=== PATIENT | male | born 1945 | race Caucasian/White ===

== ENCOUNTER 2018-05-15 13:59 | Emergency (ER) | payer MEDICARE ==
[2018-05-15] MEDS ORDERED: FUROSEMIDE 40 MG TABLET PO ONE (15:15)
--- NOTE | 2018-05-15 15:18 | Emergency Department Record ---
History of Present Illness - General Chief Complaint: Numbness Stated Complaint: FEET ARE GOING NUMB Time Seen by Provider: 05/15/18 14:35 Source: Patient Mode of Arrival: Ambulatory - History of Present Illness Initial Comments: patient has swelling of both feet more the right foot and that leg is painful. Primary Dr Demarco.No chest pain no nause vomiting or diarrhea and no cough. -: Year(s) History of same: Yes Place: Other Severity: Mild Quality: Numb, Other Associated Symptoms: Other - [place] Coma Scale Eye Response: (4) Open spontaneously Motor Response: (6) Obeys commands Verbal Response: (5) Oriented [place] Total: 15 - Related Data Home Medications: Previous Rx's Medication Instructions Recorded Furosemide [Lasix] 20 mg PO DAILY #20 tablet 05/15/18 Allergies/Adverse Reactions: Allergies Allergy/AdvReac Type Severity Reaction Status Date / Time No Known Allergies Allergy none Verified 05/15/18 14:13 Travel Screening - Travel/Exposure Within Last 30 Days Have you traveled within the last 30 days?: No - Travel/Exposure Within Last Year Have you traveled outside the [place] in the last year?: No - Additonal Travel Details Have you been exposed to anyone with a communicable illness?: No - Travel Symptoms Symptom Screening: None Review of Systems Reviewed: No additional complaints except as noted below Constitutional: Reports: As per HPI. Denies: Chills, Fever, Malaise, Night sweats, Weakness, Weight change Eyes: Reports: As per HPI. Denies: Eye discharge, Eye pain, Photophobia, Vision change ENT: Reports: As per HPI. Denies: Congestion, Dental pain, Ear pain, Epistaxis , Hearing loss, Throat pain Respiratory: Reports: As per HPI. Denies: Cough, Dyspnea, Hemoptysis, Stridor, Wheezes Cardiovascular: Reports: As per HPI. Denies: Arrhythmia, Chest pain, Dyspnea on exertion, Edema, Murmurs, Orthopnea, Palpitations, Paroxysmal nocturnal dyspnea, Rheumatic Fever, Syncope Endocrine: Reports: As per HPI. Denies: Fatigue, Heat or cold intolerance, Polydipsia, Polyuria Gastrointestinal: Reports: As per HPI. Denies: Abdominal pain, Constipation, Diarrhea, Hematemesis, Hematochezia, Melena, Nausea, Vomiting Genitourinary: Reports: As per HPI. Denies: Dysuria, Frequency, Hematuria, Incontinence, Retention, Testicular pain, Testicular mass, Urgency Musculoskeletal: Reports: As per HPI. Denies: Arthralgia, Back pain, Gout, Joint swelling, Myalgia, Neck pain Skin: Reports: As per HPI. Denies: Bruising, Change in color, Change in hair/ nails, Lesions, Pruritus, Rash Neurological: Reports: As per HPI. Denies: Abnormal gait, Confusion, Headache, Numbness, Paresthesias, Seizure, Tingling, Tremors, Vertigo, Weakness Psychiatric: Reports: As per HPI. Denies: Anxiety, Auditory hallucinations, Depression, Homicidal thoughts, Suicidal thoughts, Visual hallucinations Hematological/Lymphatic: Reports: As per HPI. Denies: Anemia, Blood Clots, Easy bleeding, Easy bruising, Swollen glands Past Medical History - SOCIAL HISTORY Smoking Status: Never smoker Alcohol Use: None Drug Use: None - RESPIRATORY Hx Respiratory Disorders: Yes Hx Dyspnea: Yes - CARDIOVASCULAR Hx Cardio Disorders: Yes Hx Chest Pain: Yes (had cardiac work up negative 12-10) Hx Hypertension: Yes (on meds) Hx Palpitations: Yes Comment:: pt has episodes of exhaustion and chest pain with activity occassionally - NEURO Hx Neuro Disorders: Yes Hx Dizziness: Yes (occass) Hx of Migraines: Yes (in past) Hx Seizures: Yes (questionable) Hx TIA: Yes (questionable) 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 - GI Hx GI Disorders: Yes Comment:: colon cleanse every other day - Hx Genitourinary Disorders: Yes Hx Kidney Stones: Yes Hx Prostate Problems: Yes (related to Bai Felters) - ENDOCRINE Hx Endocrine Disorders: No - MUSCULOSKELETAL Hx Musculoskeletal Disorders: Yes 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 - PSYCH Hx Psych Problems: Yes Hx Anxiety: Yes Hx Behavior Problems: Yes (gets Testerone shots if testosterone is low gets violent.) Hx Depression: Yes - HEMATOLOGY/ONCOLOGY Hx Hematology/Oncology Disorders: No Family Medical History Any Significant Family History?: No Hx Cancer: Brother/Sister Hx Heart Disease: Father, Mother Hx Kidney Disease: Mother Physical Exam - General General Appearance: Alert, Oriented x3, Cooperative, No acute distress - Head Head exam: Normal inspection - Eye Eye exam: Normal appearance, PERRL Pupils: Normal accommodation - ENT ENT exam: Normal exam, Mucous membranes moist, Normal external ear exam, Normal orophraynx, TM's normal bilaterally Ear exam: Normal external inspection. negative: External canal tenderness Nasal Exam: Normal inspection. negative: Discharge, Sinus tenderness Mouth exam: Normal external inspection, Tongue normal Teeth exam: Normal inspection. negative: Dental caries Throat exam: Normal inspection. negative: Tonsillar erythema, Tonsillar exudate - Neck Neck exam: Normal inspection, Full ROM. negative: Tenderness - Respiratory Respiratory exam: Normal lung sounds bilaterally. negative: Respiratory distress - Cardiovascular Cardiovascular Exam: Regular rate, Normal rhythm, Normal heart sounds - GI/Abdominal GI/Abdominal exam: Soft, Normal bowel sounds. negative: Tenderness - Rectal Rectal exam: Deferred - exam: Deferred - Extremities Extremities exam: Normal inspection, Full ROM, Normal capillary refill, Pedal edema, Tenderness (right leg pain) - Back Back exam: Reports: Normal inspection, Full ROM. Denies: Muscle spasm, Rash noted, Tenderness - Neurological Neurological exam: Alert, Normal gait, Oriented X3, Reflexes normal - Psychiatric Psychiatric exam: Normal affect, Normal mood - Skin Skin exam: Dry, Intact, Normal color, Warm Course Vital Signs 05/15/18 14:03 Temperature 98.2 F Pulse Rate 116 H Respiratory 18 Rate Blood Pressure 180/96 Pulse Ox 95 Medical Decision Making - Data Complexity MDM Data: Labs Ordered and/or Reviewed, X-Ray Ordered and/or Reviewed (venous dopler neg right leg , chest xray negative) - Lab Data Result diagrams: 05/15/18 15:29 05/15/18 15:29 Disposition Clinical Impression: Pedal edema, Numbness and tingling of both legs, Lymphedema Disposition: Home, Self-Care Condition: (1) Good Instructions: Leg Edema (ED) Additional Instructions: follow up with Dr. Demarco in 9ne week Prescriptions: Furosemide [Lasix] 20 mg PO DAILY #20 tablet Forms: Patient Portal Access Time of Disposition: 17:02 Quality - Quality Measures Quality Measures: N/A - Blood Pressure Screening Does Patient Have Any of the Following: No, Active Dx of HTN Blood Pressure Classification: Hypertensive Reading Systolic Measurement: 180 Diastolic Measurement: 96 Screening for High Blood Pressure: Patient Exclusion, Hx of HTN [G9744]
[2018-05-15 15:34] LABS: BASO % 0.2 % (0-6); EOS % 0.9 % (0-6); GRAN % 79.2 % (47-80); HEMATOCRIT 43.4 % (42.0-52.0); HEMOGLOBIN 14.4 gm/dl (14.0-18.0); LYMPH % 14.5 % (16-45); MEAN CELL VOLUME 88.2 fl (81-97); MEAN CORPUSCULAR HEMOGLOBIN 29.3 pg (27-33); MEAN CORPUSCULAR HGB CONC 33.2 g/dl (32-36); MEAN PLATELET VOLUME 10.9 fl (7.4-10.4); MONO % 5.2 % (0-9); PLATELET COUNT 184 K/uL (130-400); RED BLOOD COUNT 4.92 M/uL (4.40-5.70); RED CELL DISTRIBUTION WIDTH 13.8 % (11.5-14.5); WHITE BLOOD COUNT W/O DIFF 5.8 K/uL (4.2-12.2)
[2018-05-15 15:48] LABS: BLOOD UREA NITROGEN 24 mg/dL (8-23); CREATININE 1.2 mg/dL (0.7-1.2); EST GLOMERULAR FILTRATION RATE > 60 mL/min
[2018-05-15 15:51] LABS: GLUCOSE,RANDOM 127 mg/dL (74-109)
--- NOTE | 2018-05-16 23:38 | ULTRASOUND REPORT ---
EXAM: ULTRASOUND VENOUS DOPPLER LOWER EXT RT HISTORY: FEET ARE GOING NUMB. TECHNIQUE: Duplex Doppler ultrasound of the right lower extremity with and without compression. COMPARISON: None. FINDINGS: [place]-scale and color Doppler demonstrate no evidence for filling defect in the right lower extremity, including the right common femoral vein, femoral vein, popliteal vein, and calf veins. Compression images demonstrate compression of the aforementioned veins. IMPRESSION: NO EVIDENCE FOR RIGHT LOWER EXTREMITY DEEP VENOUS THROMBOSIS. JOB NUMBER: [id number] [facility]
--- NOTE | 2018-05-16 23:40 | RADIOLOGY REPORT ---
EXAM: CHEST 2 VIEWS HISTORY: SHORTNESS OF BREATH. TECHNIQUE: PA and lateral views. FINDINGS: The cardiomediastinal silhouette is normal in size. The pulmonary vasculature is not congested. No focal consolidation, pleural effusion, or pneumothorax is evident. IMPRESSION: NO EVIDENCE FOR PNEUMONIA OR PULMONARY EDEMA. JOB NUMBER: [id number] [facility]
== END 2018-05-15 17:20 | disposition home or self-care (01) ==
LOC: ER 13:59
DX: I89.0 Lymphedema, not elsewhere classified (principal); R20.0 Anesthesia of skin; R06.02 Shortness of breath; I10 Essential (primary) hypertension
CPT/HCPCS: 71046; 80048; 85025; 99283; 99284

== ENCOUNTER 2019-03-14 09:30 | Emergency (ER) | payer MEDICARE ==
--- NOTE | 2019-03-14 09:55 | Emergency Department Record ---
History of Present Illness - General Chief Complaint: Fever Stated Complaint: chills/fever Time Seen by Provider: 03/14/19 09:43 Source: Patient, RN notes reviewed Mode of Arrival: Ambulatory - History of Present Illness Initial Comments: patient has a temperature this AM and chilles this am and he had a UTI about 4 weeks ago and he has leg edema for one year and still has leg edema and yesterday Dr. Demarco did an echocardiogram for the leg edema. Patient is tired. and he denies congestion cough or sore throat but he complains of a chronic cough. Patient said his temp this AM was 100 degrees and he took one tylenol prior to coming to the ED PMH Klinsfeld disorder , chronic edema of legs and today they are one plus edema and weeks ago diagnosised by [facility] with a UTI and in 2014 he says he was hospitaized at [facility] for [facility]. Primary is Dr Demarco Patient states he gets testerone shots and if his testosterone goes low he gets violent Patient denies chest pain or dyspnea. Patient denies any pain anywhere Onset/Timin -: Days(s) Context: Recent antibiotic use - Related Data Previous Rx's Medication Instructions Recorded Ciprofloxacin HCl [Cipro] 500 mg PO Q12HR #20 tablet 03/14/19 Allergies Allergy/AdvReac Type Severity Reaction Status Date / Time No Known Drug Allergies Allergy Verified 03/14/19 09:44 Travel Screening - Travel/Exposure Within Last 30 Days Have you traveled within the last 30 days?: No - Travel/Exposure Within Last Year Have you traveled outside the [place] in the last year?: No - Additonal Travel Details Have you been exposed to anyone with a communicable illness?: No - Travel Symptoms Symptom Screening: None Review of Systems Reviewed: No additional complaints except as noted below Constitutional: Reports: As per HPI. Denies: Chills, Fever, Malaise, Night sweats, Weakness, Weight change Eyes: Reports: As per HPI. Denies: Eye discharge, Eye pain, Photophobia, Vision change ENT: Reports: As per HPI. Denies: Congestion, Dental pain, Ear pain, Epistaxis , Hearing loss, Throat pain Respiratory: Reports: As per HPI. Denies: Cough, Dyspnea, Hemoptysis, Stridor, Wheezes Cardiovascular: Reports: As per HPI. Denies: Arrhythmia, Chest pain, Dyspnea on exertion, Edema, Murmurs, Orthopnea, Palpitations, Paroxysmal nocturnal dyspnea, Rheumatic Fever, Syncope Endocrine: Reports: As per HPI. Denies: Fatigue, Heat or cold intolerance, Polydipsia, Polyuria Gastrointestinal: Reports: As per HPI. Denies: Abdominal pain, Constipation, Diarrhea, Hematemesis, Hematochezia, Melena, Nausea, Vomiting Genitourinary: Reports: As per HPI. Denies: Dysuria, Frequency, Hematuria, Incontinence, Retention, Testicular pain, Testicular mass, Urgency Musculoskeletal: Reports: As per HPI. Denies: Arthralgia, Back pain, Gout, Joint swelling, Myalgia, Neck pain Skin: Reports: As per HPI. Denies: Bruising, Change in color, Change in hair/ nails, Lesions, Pruritus, Rash Neurological: Reports: As per HPI. Denies: Abnormal gait, Confusion, Headache, Numbness, Paresthesias, Seizure, Tingling, Tremors, Vertigo, Weakness Psychiatric: Reports: As per HPI. Denies: Anxiety, Auditory hallucinations, Depression, Homicidal thoughts, Suicidal thoughts, Visual hallucinations Hematological/Lymphatic: Reports: As per HPI. Denies: Anemia, Blood Clots, Easy bleeding, Easy bruising, Swollen glands Past Medical History - SOCIAL HISTORY Smoking Status: Never smoker Alcohol Use: None Drug Use: None - RESPIRATORY Hx Respiratory Disorders: Yes Hx Dyspnea: Yes - CARDIOVASCULAR Hx Cardio Disorders: Yes Hx Chest Pain: Yes (had cardiac work up negative 12-10) Hx Hypertension: Yes (on meds) Hx Palpitations: Yes Comment:: pt has episodes of exhaustion and chest pain with activity occassionally - NEURO Hx Neuro Disorders: Yes Hx Dizziness: Yes (occass) Hx of Migraines: Yes (in past) Hx Seizures: Yes (questionable) Hx TIA: Yes (questionable) 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 - GI Hx GI Disorders: Yes Comment:: colon cleanse every other day - Hx Genitourinary Disorders: Yes Hx Kidney Stones: Yes Hx Prostate Problems: Yes (related to Bai Felters) - ENDOCRINE Hx Endocrine Disorders: No - MUSCULOSKELETAL Hx Musculoskeletal Disorders: Yes 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 - PSYCH Hx Psych Problems: Yes Hx Anxiety: Yes Hx Behavior Problems: Yes (gets Testerone shots if testosterone is low gets violent.) Hx Depression: Yes - HEMATOLOGY/ONCOLOGY Hx Hematology/Oncology Disorders: No Family Medical History Any Significant Family History?: Yes Hx Cancer: Brother/Sister Hx Heart Disease: Father, Mother Hx Kidney Disease: Mother Physical Exam - General General Appearance: Alert, Oriented x3, Cooperative, No acute distress - Head Head exam: Normal inspection - Eye Eye exam: Normal appearance, PERRL Pupils: Normal accommodation - ENT ENT exam: Normal exam, Mucous membranes moist, Normal external ear exam, Normal orophraynx, TM's normal bilaterally Ear exam: Normal external inspection. negative: External canal tenderness Nasal Exam: Normal inspection. negative: Discharge, Sinus tenderness Mouth exam: Normal external inspection, Tongue normal Teeth exam: Normal inspection. negative: Dental caries Throat exam: Normal inspection. negative: Tonsillar erythema, Tonsillar exudate - Neck Neck exam: Normal inspection, Full ROM. negative: Tenderness - Respiratory Respiratory exam: Normal lung sounds bilaterally. negative: Respiratory distress - Cardiovascular Cardiovascular Exam: Regular rate, Normal rhythm, Normal heart sounds - GI/Abdominal GI/Abdominal exam: Soft, Normal bowel sounds. negative: Tenderness - Rectal Rectal exam: Deferred - exam: Deferred - Extremities Extremities exam: Normal inspection, Full ROM, Normal capillary refill. negative: Tenderness - Back Back exam: Reports: Normal inspection, Full ROM. Denies: Muscle spasm, Rash noted, Tenderness - Neurological Neurological exam: Alert, Normal gait, Oriented X3, Reflexes normal - Psychiatric Psychiatric exam: Normal affect, Normal mood - Skin Skin exam: Dry, Intact, Normal color, Warm Course Vital Signs 03/14/19 09:36 Temperature 99.7 F H Pulse Rate 131 H Respiratory 20 Rate Blood Pressure 122/97 Pulse Ox 96 - Reevaluation(s) Reevaluation #1: bladder scan after Urination 120 ml 03/14/19 10:42 Reevaluation #2: discussed the labs with the patient and informed him he has WBC in the urine which is consistent with a UTI and will start cipro 500 mg BID, also told him his kiney function is elevated and the kidney status will have to be followed and it most likely due to dehydration and gave him Normal saline 500 ml and his heart rate dropped from 130 to 110 and I advised him to drink 6 glasses a water a day 03/14/19 11:10 Medical Decision Making - Data Complexity MDM Data: Labs Ordered and/or Reviewed (UA WBC 6-10 BUN 57 creat 2.0), X-Ray Ordered and/or Reviewed (chest xray neg) - Lab Data Result diagrams: 03/14/19 10:15 03/14/19 10:15 Disposition Clinical Impression: Dehydration UTI (urinary tract infection) Qualifiers: Urinary tract infection type: acute cystitis Hematuria presence: without hematuria Qualified Code(s): N30.00 - Acute cystitis without hematuria Disposition: Home, Self-Care Condition: (1) Good Instructions: Fever in Adults (ED), Urinary Traction Infection in Older Adults (ED) Additional Instructions: follow up with Dr Demarco in 5 days tylenol for fever one every 6 hours and drink lots of fluid patient will need to have his kidney labs recheck to follow his BUN and creat Prescriptions: Ciprofloxacin HCl [Cipro] 500 mg PO Q12HR #20 tablet Forms: Patient Portal Access Time of Disposition: 10:53 Quality - Quality Measures Quality Measures: N/A - Blood Pressure Screening Does Patient Have Any of the Following: No, Active Dx of HTN Blood Pressure Classification: Hypertensive Reading Systolic Measurement: 122 Diastolic Measurement: 97 Screening for High Blood Pressure: Patient Exclusion, Hx of HTN [G9744]
[2019-03-14 10:22] LABS: HEMATOCRIT 42.4 % (42.0-52.0); HEMOGLOBIN 14.1 gm/dl (14.0-18.0); MEAN CELL VOLUME 89.1 fl (81-97); MEAN CORPUSCULAR HEMOGLOBIN 29.6 pg (27-33); MEAN CORPUSCULAR HGB CONC 33.3 g/dl (32-36); MEAN PLATELET VOLUME 11.1 fl (7.4-10.4); PLATELET COUNT 198 K/uL (130-400); RED BLOOD COUNT 4.76 M/uL (4.40-5.70); RED CELL DISTRIBUTION WIDTH 14.3 % (11.5-14.5); URINE APPEARANCE CLEAR; URINE BILIRUBIN NEGATIVE (NEGATIVE); URINE BLOOD NEGATIVE (NEGATIVE); URINE COLOR YELLOW; URINE GLUCOSE (UA) NEGATIVE (NEGATIVE); URINE KETONE NEGATIVE (NEGATIVE); URINE LEUKOCYTE ESTERASE SMALL (NEGATIVE); URINE NITRITE NEGATIVE (NEGATIVE); URINE PROTEIN NEGATIVE (NEGATIVE); URINE UROBILINOGEN 0.2 E.U./dL (0.20 - 1.00); WHITE BLOOD COUNT W/O DIFF 13.8 K/uL (4.2-12.2)
[2019-03-14 10:30] LABS: URINE EPITHELIAL CELLS NONE SEEN (FEW); URINE HYALINE CAST 0 - 5 /lpf; URINE RBC NONE SEEN (NONE SEEN)
[2019-03-14] MEDS ORDERED: 0.9 % SODIUM CHLORIDE 500ML 500 ML IV SCH (10:30)
[2019-03-14 10:33] LABS: PLATELET ESTIMATE NORMAL (NORMAL)
[2019-03-14] MEDS ORDERED: CIPROFLOXACIN HCL 500 MG TABLET PO ONE (10:51)
--- NOTE | 2019-03-17 07:36 | RADIOLOGY REPORT ---
EXAM: CHEST, TWO VIEWS HISTORY: COUGH. FATIGUE. TECHNIQUE: Upright PA and lateral views of the chest were obtained. Comparison: Two view chest radiographic examination dated 05/15/18. FINDINGS: The heart is not enlarged and the pulmonary vasculature is nondilated. The thoracic aorta is tortuous and atherosclerotic. The lungs and pleural spaces are clear. Degenerative end plate changes are scattered throughout the visualized spine. IMPRESSION: NO RADIOGRAPHIC EVIDENCE OF ACUTE CARDIOPULMONARY DISEASE WITHOUT SIGNIFICANT CHANGE SINCE 05/15/18. JOB NUMBER: [id number] MTDD
== END 2019-03-14 11:32 | disposition home or self-care (01) ==
LOC: ER 09:30
DX: N30.00 Acute cystitis without hematuria (principal); E86.0 Dehydration; R50.81 Fever presenting with conditions classified elsewhere; R60.0 Localized edema; R06.00 Dyspnea, unspecified; R94.4 Abnormal results of kidney function studies; R05 Cough; I10 Essential (primary) hypertension
CPT/HCPCS: 71046; 80048; 81001; 85027; J7040

== ENCOUNTER 2019-03-14 19:04 | Observation (INO) | payer MEDICARE ==
[2019-03-14] MEDS ORDERED: 0.9 % SODIUM CHLORIDE 1,000 ML BAG IV ONE ×2 (19:19→20:59)
[2019-03-14] MEDS ORDERED: ACETAMINOPHEN 325 MG TAB PO ONE (19:21)
--- NOTE | 2019-03-14 19:26 | Emergency Department Record ---
History of Present Illness - General Chief Complaint: Fever Stated Complaint: FEVER AND CHILLS Time Seen by Provider: 03/14/19 19:13 Source: Patient Mode of Arrival: Ambulatory Limitations: No limitations - History of Present Illness Initial Comments: The patient is here due to a one day hx of fever, chills, and malaise. He was in the ER this afternoon and diagnosed with a UTI and started on Cipro. Now he states he is feeling very weak. The patient did take Tylenol about 4 hours ago. He denies any nausea, vomiting, AP or diarrhea since he left the ED 8 hours ago. MD Complaint: Fever, Malaise, Weakness Onset/Timin -: Hour(s) Context: Other Associated Symptoms: Chills, Nausea Treatments Prior to Arrival: Acetaminophen, Other - Related Data Previous Rx's Medication Instructions Recorded Ciprofloxacin HCl [Cipro] 500 mg PO Q12HR #20 tablet 03/14/19 Allergies Allergy/AdvReac Type Severity Reaction Status Date / Time No Known Drug Allergies Allergy Verified 03/14/19 09:44 Travel Screening - Travel/Exposure Within Last 30 Days Have you traveled within the last 30 days?: No - Travel Symptoms Symptom Screening: Fever (GT 100.4), Chills Review of Systems Constitutional: Reports: Chills, Fever, Malaise Eyes: Denies: Eye discharge ENT: Denies: Congestion Respiratory: Denies: Cough Cardiovascular: Denies: Arrhythmia Endocrine: Reports: Fatigue Gastrointestinal: Reports: Nausea. Denies: Diarrhea Genitourinary: Reports: Dysuria Musculoskeletal: Denies: Arthralgia Skin: Denies: Bruising Past Medical History - SOCIAL HISTORY Smoking Status: Never smoker - RESPIRATORY Hx Respiratory Disorders: Yes Hx Dyspnea: Yes - CARDIOVASCULAR Hx Cardio Disorders: Yes Hx Chest Pain: Yes (had cardiac work up negative 12-10) Hx Hypertension: Yes (on meds) Hx Palpitations: Yes Comment:: pt has episodes of exhaustion and chest pain with activity occassionally - NEURO Hx Neuro Disorders: Yes Hx Dizziness: Yes (occass) Hx of Migraines: Yes (in past) Hx Seizures: Yes (questionable) Hx TIA: Yes (questionable) 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 - GI Hx GI Disorders: Yes Comment:: colon cleanse every other day - Hx Genitourinary Disorders: Yes Hx Kidney Stones: Yes Hx Prostate Problems: Yes (related to Bai Felters) - ENDOCRINE Hx Endocrine Disorders: No - MUSCULOSKELETAL Hx Musculoskeletal Disorders: Yes 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 negative: Tonsillar erythema, Tonsillar exudate - Neck Neck exam: Normal inspection, Full ROM. negative: Tenderness - Respiratory Respiratory exam: Normal lung sounds bilaterally. negative: Respiratory distress - Cardiovascular Cardiovascular Exam: Regular rate, Normal rhythm, Normal heart sounds - GI/Abdominal GI/Abdominal exam: Soft, Normal bowel sounds. negative: Distended, Guarding, Organomegaly, Rebound, Rigid, Tenderness (There is no tenderness in all 4 quads. ) - Extremities Extremities exam: Normal inspection, Full ROM, Normal capillary refill, Pedal edema (chronic.). negative: Tenderness - Back Back exam: Denies: Vertebral tenderness - Neurological Neurological exam: Alert, Normal gait. negative: Abnormal gait, Motor sensory deficit - Psychiatric Psychiatric exam: negative: Anxious Course Vital Signs 03/14/19 19:12 Temperature 100.4 F H Pulse Rate [ 123 H [employer] ] Respiratory 18 Rate Blood Pressure 109/68 [Left Arm] Pulse Ox 96 - Reevaluation(s) Reevaluation #1: The patient is doing better at this time. His temp is improved and his HR decreased also. I did discuss the need to stay overnight in the hospital and the patient does agree to the plan. I then did discuss the case with Christin ( DIRECTOR OF MEDIA) and she does accept the admission for Dr. Demarco. 03/14/19 20:58 Medical Decision Making - Data Complexity MDM Data: Labs Ordered and/or Reviewed - Lab Data Result diagrams: 03/14/19 20:01 03/14/19 20:01 Disposition Disposition: Admit Clinical Impression: Dehydration, Pyelonephritis Disposition: Still a Patient at [facility] Decision to Admit: Admit from ER Decision to Admit Date: 03/14/19 Decision to Admit Time: 20:59 Accepting Physician: Nilam Time Discussed w/Accepting Physician: 20:59 Condition: (2) Stable Time of Disposition: 20:59 Quality - Quality Measures Quality Measures: N/A - Blood Pressure Screening View Details: Yes Does Patient Have Any of the Following: No Blood Pressure Classification: Normal BP Reading Systolic Measurement: 112 Diastolic Measurement: 60 Screening for High Blood Pressure: < Normal BP, F/U Not Required > [G8783]
[2019-03-14 20:10] LABS: BASO % 0.1 % (0-6); EOS % 0.1 % (0-6); HEMATOCRIT 39.4 % (42.0-52.0); HEMOGLOBIN 13.1 gm/dl (14.0-18.0); MEAN CELL VOLUME 88.5 fl (81-97); MEAN CORPUSCULAR HEMOGLOBIN 29.4 pg (27-33); MEAN CORPUSCULAR HGB CONC 33.2 g/dl (32-36); MEAN PLATELET VOLUME 11.2 fl (7.4-10.4); MONO % 4.5 % (0-9); PLATELET COUNT 171 K/uL (130-400); RED BLOOD COUNT 4.45 M/uL (4.40-5.70); RED CELL DISTRIBUTION WIDTH 14.5 % (11.5-14.5); WHITE BLOOD COUNT W/O DIFF 15.2 K/uL (4.2-12.2)
[2019-03-14 20:12] LABS: URINE APPEARANCE CLEAR; URINE BILIRUBIN NEGATIVE (NEGATIVE); URINE BLOOD NEGATIVE (NEGATIVE); URINE COLOR YELLOW; URINE GLUCOSE (UA) NEGATIVE (NEGATIVE); URINE KETONE NEGATIVE (NEGATIVE); URINE LEUKOCYTE ESTERASE SMALL (NEGATIVE); URINE NITRITE NEGATIVE (NEGATIVE); URINE PROTEIN NEGATIVE (NEGATIVE); URINE UROBILINOGEN 0.2 E.U./dL (0.20 - 1.00)
[2019-03-14 20:40] LABS: BILIRUBIN,TOTAL 1.2 mg/dL (0.2-1.0); CREATININE 2.1 mg/dL (0.7-1.2)
[2019-03-14 20:41] LABS: TOTAL PROTEIN 7.6 g/dL (6.6-8.7)
[2019-03-14] MEDS ORDERED: CEFTRIAXONE 1GM/50ML BAG 1 GM/50 ML BAG IVPB ONE (20:42)
[2019-03-14 20:46] LABS: ALBUMIN 4.1 g/dL (4.0-5.0); BILIRUBIN,DIRECT 0.3 mg/dL (0-0.3)
[2019-03-14] MEDS ORDERED: POTASSIUM CHLORIDE/D5-0.9%NACL 20 MEQ/1,000 ML BAG IV ONE (21:35)
[2019-03-14] MEDS ORDERED: TAMSULOSIN HCL 0.4 MG CAP.ER.24H PO SCH (21:35)
[2019-03-14] MEDS ORDERED: ACETAMINOPHEN 325 MG TAB PO PRN (21:35)
[2019-03-14 22:19] LABS: URINE BACTERIA FEW; URINE EPITHELIAL CELLS 0 - 2 (FEW); URINE RBC 0 - 2 (NONE SEEN)
[2019-03-15 06:07] LABS: BASO % 0.2 % (0-6); EOS % 0.1 % (0-6); HEMATOCRIT 33.2 % (42.0-52.0); HEMOGLOBIN 10.8 gm/dl (14.0-18.0); LYMPH % 5.8 % (16-45); MEAN CELL VOLUME 89.5 fl (81-97); MEAN CORPUSCULAR HEMOGLOBIN 29.1 pg (27-33); MEAN CORPUSCULAR HGB CONC 32.5 g/dl (32-36); MEAN PLATELET VOLUME 10.9 fl (7.4-10.4); MONO % 5.8 % (0-9); PLATELET COUNT 141 K/uL (130-400); RED BLOOD COUNT 3.71 M/uL (4.40-5.70); RED CELL DISTRIBUTION WIDTH 14.3 % (11.5-14.5); WHITE BLOOD COUNT W/O DIFF 8.4 K/uL (4.2-12.2)
[2019-03-15] MEDS ORDERED: CEFTRIAXONE 1GM/50ML BAG 1 GM/50 ML BAG IVPB SCH (09:00)
[2019-03-15] MEDS ORDERED: LISINOPRIL 20 MG TABLET PO SCH (10:00)
[2019-03-15] MEDS ORDERED: HYDROCHLOROTHIAZIDE 25 MG TABLET PO SCH (10:00)
[2019-03-15] MEDS ORDERED: ATORVASTATIN 20 MG TABLET PO SCH (10:00)
[2019-03-15] MEDS ORDERED: MAGNESIUM HYDROXIDE 30 ML UDC PO PRN (10:11)
[2019-03-15] MEDS ORDERED: CIPROFLOXACIN HCL 500 MG TABLET PO SCH (10:15)
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
--- NOTE | 2019-03-17 07:51 | CT SCAN REPORT ---
EXAM: NONCONTRAST CT OF THE ABDOMEN AND PELVIS HISTORY: CHILLS, SWEATS, HOT FLASHES FOR SIX WEEKS. POSSIBLE URINARY TRACT INFECTION. HISTORY OF UROLITHIASIS. TECHNIQUE: Noncontrast CT of the abdomen and pelvis was obtained. Comparison: CT of the abdomen and pelvis 11/11/12. FINDINGS: Noncalcified 5 mm nodule in the posterior right lower lobe. Hepatitic steatosis. Calcified granulomas throughout the liver and spleen. The gallbladder appears unremarkable. Mild fatty atrophy of the pancreas. Unremarkable adrenal glands. Small bilateral intrarenal calculi measuring up to 2 mm in both kidneys. No hydronephrosis. Nonspecific perinephric fat stranding. Large 11 mm calculus within the distal right ureter at the ureterovesicular junction (series 3 image 149). Small 3 mm calculus most likely within the urinary bladder lumen along the posterior lateral left wall. Additional ill defined calcific densities along the posterior inferior bladder wall, may represent multiple additional intravesical calculi. The prostate gland is enlarged and nodular. Colonic diverticulosis without evidence of acute diverticulitis. The appendix is normal. The stomach and small bowel are nondilated. No free air or free fluid. The abdominal aorta is calcified and tortuous without aneurysmal dilatation. The inguinal canals are patulous and fat containing. Degenerative changes of the lumbar spine and hips. IMPRESSION: 1. LARGE 11 MM CALCULUS WITHIN THE DISTAL RIGHT URETER AT THE URETERAL VESICULAR JUNCTION. ADDITIONAL BILATERAL NONOBSTRUCTING INTRARENAL CALCULI WELL PROBABLE INTRALUMINAL BLADDER CALCULI. NO SIGNIFICANT RENAL COLLECTING SYSTEM DILATATION. 2. NONSPECIFIC PERINEPHRIC FAT STRANDING. 3. ENLARGED NODULAR PROSTATE GLAND. 4. HEPATIC STEATOSIS. 5. NONCALCIFIED 5 MM RIGHT LOWER LOBE NODULE. IF THERE IS A HISTORY OF SMOKING RECOMMEND FOLLOW-UP TWELVE MONTH CT OF THE CHEST. 6. COLONIC DIVERTICULOSIS WITHOUT EVIDENCE OF ACUTE DIVERTICULITIS. JOB NUMBER: [id number] [facility]
== END 2019-03-15 14:15 | disposition short-term general hospital (02) ==
LOC: ER 19:04 → MEDSURG 21:20
PROVIDERS: ADMIT Internal Medicine; ATTEND Internal Medicine
DX: N10 Acute pyelonephritis (principal); N30.00 Acute cystitis without hematuria; E86.0 Dehydration; R50.81 Fever presenting with conditions classified elsewhere; R53.1 Weakness; R60.0 Localized edema; R06.00 Dyspnea, unspecified; R05 Cough; R94.4 Abnormal results of kidney function studies; I10 Essential (primary) hypertension; Q98.4 Klinefelter syndrome, unspecified; Z86.73 Personal history of transient ischemic attack (TIA), and cerebral infarction without residual deficits
CPT/HCPCS: 82310; 83605; 80076; 80048 ×2; 81001; 84145; 85027 ×2; 74176; G0378 ×2; J0696; 71046; 96360; 96365; 99220; 99284; 99285; J3480; J7030; J7040